=== PATIENT | female | born 1945 | race African-American/Black ===

== ENCOUNTER 2016-06-20 10:24 | Inpatient (IN) | payer MEDICARE, OTHER ==
[2016-06-11 13:51] LABS: HEMATOCRIT 34.6 % (36.0-48.0); HEMOGLOBIN 12.3 g/dL (12.0-16.0)
[2016-06-11 14:12] LABS: BUN (BLOOD UREA NITROGEN) 16 MG/DL (6-23); CALCIUM, SERUM 8.7 MG/DL (8.5-10.4); CHLORIDE, SERUM 107 MMOL/L (96-112); CO2 (CARBON DIOXIDE) 27 MMOL/L (24-34); CREATININE 1.09 MG/DL (0.55-1.02); GFR AFRICAN AMERICAN 60 ML/MIN (>=60); GFR NON AFRICAN AMERICAN 52 ML/MIN (>=60); GLUCOSE, SERUM 90 MG/DL (60-99); POTASSIUM, SERUM 3.4 MMOL/L (3.5-5.3); SODIUM, SERUM 145 MMOL/L (135-148)
--- NOTE | ~2016-06-20 | OP ---
Record Of Operation [facility] [address] [place]. [address] NAME: CHAR SAUER : 47 STATUS : ADM IN PAT#: [id number] AGE: 70 ADM/REG DATE : 06/20/16 MR#: [id number] REPORT SERV DATE: 06/20/16 DICTATED BY: VINCE DAUGHERTY DATE: 06/20/16 REPORT STATUS : Draft TRANSCRIBED BY: MODL DATE: 06/20/16 DATE OF PROCEDURE: 06/20/2016 SERVICE: Otolaryngology. ATTENDING PHYSICIAN: Vince Daugherty M.D. PREOPERATIVE DIAGNOSIS: Cervical spine disease. POSTOPERATIVE DIAGNOSE: Cervical spine disease. PROCEDURE: Anterior cervical approach to the anterior cervical spine. SURGEON: Vince Daugherty M.D. CAKE PRESS OPERATOR: Yudelka Browning.O. ANESTHESIA: General endotracheal anesthesia with a 6-0 nerve integrity monitoring tube. SPECIMENS: None. FINDINGS: We were able to adequately expose the plate for removal. COMPLICATIONS: None. ESTIMATED BLOOD LOSS: 5 mL. STATEMENT OF MEDICAL NECESSITY: This is a 70-year-old female with history of severe cervical spine disease, who underwent an ACDF. Unfortunately, she had a large thyroid goiter at the time and the surgery was very difficult. She since had problems with that and is requiring revision. In the interim, I have done a total thyroidectomy on her. 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 Dr. Winchester was planning a revision surgery. He asked me to come and do the approach. We selected the right-hand side because the left is her only working vocal cord. We did this to avoid complications of bilateral cord paralysis. STATEMENT OF OPERATION: The patient was brought to the operating room in supine position, transferred over to the operating table. All pressure points were padded and general endotracheal anesthesia was established with a 6-0 nerve integrity monitoring tube. The patient's neck was placed in extension with a shoulder roll. A surgical marking was made in a relaxed skin tension line. It was injected with 2 mL of 2% lidocaine with epinephrine. The patient was then prepped and draped in usual fashion. The nerve integrity monitor was found to be functioning appropriately. An incision was made down through the platysma. The skin edges were retracted with Canova retracting hooks. The midline raphe was identified and divided bluntly and sharply with Metzenbaum scissors. The strap muscles were retracted laterally. The space between the trachea and great vessels developed gently using [facility] Record Of Operation [facility] [address] [place]. [address] NAME: CHAR SAUER : 47 STATUS : ADM IN PAT#: [id number] AGE: 70 ADM/REG DATE : 06/20/16 MR#: [id number] REPORT SERV DATE: 06/20/16 DICTATED BY: VINCE DAUGHERTY DATE: 06/20/16 REPORT STATUS : Draft TRANSCRIBED BY: MODL DATE: 06/20/16 dissector and a Harmonic scalpel. Once we got down to that space, we identified the anterior surface of the plate. It was fully exposed. The scar tissue over the top of the plate was incised with the Bovie cautery and then removed with a Kittner elevator. Once the plate was completely exposed, Dr. Winchester took over. Please see his dictation for the remainder of the surgery. PS/MODL Vince Daugherty MD / [id number] CC: Tc Winchester, DO Iban Hickman M.D.
--- NOTE | ~2016-06-20 | OP ---
Record Of Operation [facility] [address] [place]. [address] NAME: CHAR SAUER : 47 STATUS : ADM IN PAT#: [id number] AGE: 70 ADM/REG DATE : 06/20/16 MR#: [id number] REPORT SERV DATE: 06/21/16 DICTATED BY: TC WINCHESTER DATE: 06/20/16 REPORT STATUS : Draft TRANSCRIBED BY: MODL DATE: 06/20/16 DATE OF PROCEDURE: 06/20/2016 PREOPERATIVE DIAGNOSES: 1. Recurrent disk disease and stenosis, C3 through T1 with previous C4 through C7 anterior cervical diskectomy and fusion with pullout of anterior cervical screws from the previously placed fusion. 2. Cervical myelopathy. 3. Cervical stenosis with spinal cord compression. POSTOPERATIVE DIAGNOSES: 1. Recurrent disk disease and stenosis, C3 through T1 with previous C4 through C7 anterior cervical diskectomy and fusion with pullout of anterior cervical screws from the previously placed fusion. 2. Cervical myelopathy. 3. Cervical stenosis with spinal cord compression. PROCEDURE: Two-stage procedure, first stage removal of C4 through C7 anterior cervical plate and screws; removal of previously placed C4-5, C5-6, and C6-7 PEEK interbody spacers; C4, C5, and C6 corpectomy (removal of the central one-third of the vertebral body at each of those three levels); placement of titanium mesh cage, C3 through C7; local morcellized autograft; allograft bone matrix; neuromonitoring; anterior cervical plate from [employer], C3 through C7; intraoperative O-arm CT scan with computer navigation; and operative microscope. SURGEONS: For stage I was Dr. Winchester and Dr. Machuca from ENT performed the exposure and he will dictate that separately. Stage II of the procedure was C2-C7 laminectomy and bilateral foraminotomies, C2-T1 posterolateral fusion bilaterally, C2-T1 posterior segmental spinal instrumentation using Medtronic pedicle screws and lateral mass screws, local morcellized autograft, allograft bone matrix, neuromonitoring, intraoperative O-arm CT scan with computer navigation. Surgeon for stage II just Dr. Winchester. The intraoperative O-arm CT scan with computer navigation should just be for stage II, not for stage I. ANESTHESIA: General estimated. ESTIMATED BLOOD LOSS: 350 mL. COMPLICATIONS: None. INDICATIONS: The patient is a pleasant 70-year-old, who had undergone a previous anterior cervical diskectomy and fusion. She had a very large and very immobile goiter, which hindered my approach and ability to do as good of a decompression as necessary and the patient continued to have progressive degenerative changes, and spinal cord and nerve root compression, failed conservative treatment, and after progressive neurologic decline elected to proceed with revision surgery. Record Of Operation [facility] [address] [place]. [address] NAME: CHAR SAUER : 47 STATUS : ADM IN PAT#: [id number] AGE: 70 ADM/REG DATE : 06/20/16 MR#: [id number] REPORT SERV DATE: 06/21/16 DICTATED BY: TC WINCHESTER DATE: 06/20/16 REPORT STATUS : Draft TRANSCRIBED BY: MARIO ALBERTO DATE: 06/20/16 PROCEDURE IN DETAIL: I identified the patient in the holding area. Consent was obtained. Went to the operating room. Underwent general anesthesia with endotracheal intubation. Prepped and draped in the usual sterile fashion. Operative safety pause was performed and then we proceeded with surgery. Dr. Machuca from ENT performed the approach to the anterior cervical spine and it is dictated separately. Previously placed instrumentation was identified. The screws were removed from C4 through C7 bilaterally. The plate was removed. Each of the previously placed interbody PEEK grafts were also removed. Anterior osteophytes were removed with a Kerrison. Repeat diskectomies were performed at C3-4, C4-5, C5-6, and C6-C7. Corpectomies were performed at C4, C5, and C6. A rongeur was used to remove the anterior third of the vertebral body. The posterior aspect of the vertebral bodies was taken down with a Kerrison. Foraminotomies were repeated from C3 through C7, decompressing the spinal cord centrally as well as the C4-C7 nerve roots bilaterally. A high-speed bur was used to decorticate the remaining endplate at C3 and C7. A rasp was used to final prepare. A caliper was used to measure the distance. A titanium mesh cage was cut to the appropriate length, packed with local morcellized autograft and allograft bone matrix and placed into the C3-C7 interspace. This was all done under visualization from operative microscope. An anterior cervical plate was then placed from C3 through C7. Screws were placed, final tightened. Locking mechanism engaged. Irrigation performed. Hemostasis achieved. Subplatysmal drain placed. Layered closure performed. Sterile dressings applied. The patient was turned the prone position, prepped and draped in usual sterile fashion. A midline longitudinal incision was made to start the stage II procedure. Taken down through the fascial layer. Paraspinous muscle subperiosteally elevated. Self- retaining retractors were placed. O-arm registration frame was placed on the spinous process. O-arm was brought in for intraoperative CT scan. Computer registration materials were verified. Under computer guidance, pedicle and lateral mass screws were placed bilaterally from C2 down to T1. A high-speed bur was used to create a trough in the lamina, C3-C7. Final cut through was made with a obdulia jessica. Kerrison released the ligamentum flavum, and lamina was removed en bloc from C3 to C7 and used for local morcellized autograft. Performed foraminotomies bilaterally, C3 through C7, decompressing the C4-C7 nerve roots. Rods were cut and contoured to appropriate shape and length, and placed over the screws from C2 to T1. Set screws were placed and final tightened. A high-speed decorticating jessica was used to decorticate the remaining bony surfaces, C2-T1 bilaterally. Irrigation performed. Hemostasis achieved. Local morcellized autograft and allograft bone matrix packed over the decorticated surfaces, C2-T1 bilaterally. Subfascial drain was placed. A gram of vancomycin powder was sprinkled over the surgical wound. Layered closure performed. Sterile dressings applied. The patient was awoken and extubated, taken to the recovery room in stable condition. OPERATIVE FINDINGS: Severe stenosis, C3-C7. No sustained neuromonitoring alerts. JCE/MODL Tc Winchester, DO Record Of Operation [facility] [address] [place]. [address] NAME: CHAR SAUER : 49 STATUS : ADM IN [facility]#: [id number] AGE: 70 ADM/REG DATE : 06/20/16 MR#: [id number] REPORT SERV DATE: 06/21/16 DICTATED BY: TC WINCHESTER DATE: 06/20/16 REPORT STATUS : Draft TRANSCRIBED BY: MARIO ALBERTO DATE: 06/20/16 / [id number] CC: Tc Winchester DO
--- NOTE | ~2016-06-20 | DS ---
Discharge Summary [facility] [address] [place]. [address] NAME: CHAR SAUER : 49 STATUS : DIS IN PAT#: [id number] AGE: 70 ADM/REG DATE : 06/20/16 MR#: [id number] REPORT SERV DATE: 07/04/16 DICTATED BY: TC WINCHESTER DATE: 07/03/16 REPORT STATUS : Draft TRANSCRIBED BY: MARIO ALBERTO DATE: 07/03/16 Data Collection from hospitalization DISCHARGE DIAGNOSES: 1. Recurrent disk disease and stenosis, C3 through T1 with previous C4 through C7 anterior cervical diskectomy and fusion with pull out of anterior cervical screws from the previously placed fusion. 2. Cervical myelopathy. 3. Cervical stenosis with spinal cord compression. 4. Hypertension. 5. Rheumatoid arthritis. 6. Fibromyalgia. 7. Hypercholesterolemia. 8. Hypothyroidism. 9. Migraines. 10.Gastric reflux. CONSULTATIONS: 1. Torres Machuca MD. 2. Ramón Escalante M.D. PROCEDURES PERFORMED: 1. Anterior cervical approach to the anterior cervical spine on 06/20/2016. 2. Two-stage procedure. First stage: Removal of C4 through C7 anterior cervical plate and screws; removal of previously placed C4-C5, C5-C6, and C6-C7 PEEK interbody spacers; C4, C5, and C6 corpectomy (removal of central one-third of the vertebral body at each of those three levels); placement of titanium mesh cage, C3 through C7; local morselized autograft; allograft bone matrix; neuromonitoring; anterior cervical plate from [employer], C3 through C7; intraoperative O-arm CT scan with computer navigation and operative microscope on 06/20/2016. PATHOLOGY: Vertebral bone and soft tissue, cervical spine - no specific microscopic abnormality. MEDICATIONS: Humira 40 mg subcutaneously every other week, aspirin 81 mg daily, Tenormin 50 mg every morning, Tums two tablets three times a day, vitamin D 1000 units daily, Nexium 40 mg every morning, Premarin 0.9 mg daily as instructed, Lunesta 3 mg at bedtime, Janine 180 mg daily, folic acid 3 mg daily, hydrochlorothiazide 25 mg daily, [place] 5/325 one to two tablets every four hours as needed, levothyroxine 88 mcg daily, Amitiza 8 mcg with breakfast and supper, Trexall 25 mg weekly, fish oil 1000 mg daily, Percocet 5/325 one to two tablets every four hours as needed, MiraLAX powder one packet daily, Micro-K 10 mEq three times a day, Pravachol 40 mg at bedtime, Maxalt 10 mg as needed, Zanaflex 2 mg three times a day, and Topamax 100 mg every morning. CONDITION AT DISCHARGE: Stable. DISPOSITION: The patient was discharged home to be followed by home health on a mechanical soft, gluten-free diet with activities as instructed. She would follow up with me on Discharge Summary [place] [id number] [facility] [place]. [address] NAME: CHAR SAUER : 47 STATUS : DIS IN PAT#: [id number] AGE: 70 ADM/REG DATE : 06/20/16 MR#: [id number] REPORT SERV DATE: 07/04/16 DICTATED BY: TC WICNHESTER DATE: 07/03/16 REPORT STATUS : Draft TRANSCRIBED BY: MARIO ALBERTO DATE: 07/03/16 07/05/2016. HOSPITAL COURSE: This is a 70-year-old female who had undergone a previous anterior cervical diskectomy and fusion at C4 through C7. Unfortunately, due to a large goiter, I was unable to obtain sufficient exposure to complete all of the decompression and stabilization that was needed. I was dissatisfied with the overall placement of the plate, but it was not in a position of danger, but I felt that she would heal better and I would be able to get a better decompression and fusion on the patient now that the goiter had been removed. We had discussed this in great detail consisting of both an anterior and posterior approach as she does have some additional cord compression at C2-C3 level above where the previous fusion was done. Treatment options were discussed and it was elected to proceed with surgical intervention. She was admitted to the hospital at this time for further evaluation and treatment. Upon admission, she was seen by Dr. Torres Machuca. He had performed the total thyroidectomy on the patient. 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 He had been asked to perform the approach for the cervical spine surgery. The patient was taken to the operating room where she underwent the above-mentioned procedures by myself and Dr. Torres Machuca. She tolerated this well, and there were no complications. On postop day #1, she was seen by Dr. Ramón Escalante. She was awake and alert. Blood pressure was 167/78. Her heart rate was 72. She was stable postoperatively. She was evaluated by Physical Therapy. On 06/22/2016, she continued to do well. She was tolerating her diet. Her drains were left in place. Over the next couple of days, she continued to progress. Her drain was removed. Discharge planning was performed. She was able to get up and go to the bathroom with assistance. Blood pressure was controlled. On 06/25/2016, she had good pain control. She wanted to go home. Discharge instructions were given. Due to her improved and stable condition, she was discharged home to be followed by home health care with the above-stated instructions. Information collected by: Marjan Etienne I submit the above information as my discharge summary. TG/MODL Tc Winchester DO / [id number] CC: DO Iban Browning M.D. Peter Sabatini, MD
--- NOTE | ~2016-06-20 | PREOPHP ---
PreOp History and Physical [facility] [address] [place]. [address] NAME: CHAR SAUER : 47 STATUS : ADM IN PAT#: [id number] AGE: 70 ADM/REG DATE : 06/20/16 MR#: [id number] REPORT SERV DATE: 06/20/16 DICTATED BY: TC WINCHESTER DATE: 06/20/16 REPORT STATUS : Draft TRANSCRIBED BY: MARIO ALBERTO DATE: 06/20/16 CHIEF COMPLAINT: Neck pain and signs of myelopathy. HISTORY OF PRESENT ILLNESS: The patient is a 70-year-old, who had undergone a previous anterior cervical diskectomy and fusion by me at C4 through C7. Unfortunately due to a large goiter, I was unable to obtain sufficient exposure to complete all the decompression and stabilization that was needed, and I was dissatisfied with the overall placement of the plate, it was not in a position of danger, but I felt that she would heal better and I would be able to get a better decompression and fusion on the patient now that the goiter has been removed. We discussed this in great detail consisting of both an anterior and posterior approach, as she does have some additional cord compression at the C2-C3 level above where the previous fusion was done and after discussion of risks and benefits, she elected to proceed with the combined surgery to try to give herself the best chance for full decompression with fusion. REVIEW OF SYSTEMS: She denies chest pain, shortness of breath, and bowel or bladder changes. ALLERGIES: INCLUDE MORPHINE AND SULFA. HOME MEDICATIONS: Janine, alprazolam, aspirin, Amitiza, amlodipine, atenolol, fish oil, folic acid, Lasix, hydrochlorothiazide, hydrocodone, indomethacin, Lunesta, Maxalt, methotrexate, Nexium, polyethylene glycol, potassium, Pravachol, pravastatin, Premarin, Restasis, Symbicort, Synthroid, tizanidine, Topamax, Valtrex, vitamin D3 with ALA. FAMILY HISTORY: Noncontributory. PAST MEDICAL HISTORY: Include rheumatoid arthritis, fibromyalgia, hypertension, high cholesterol, hypothyroidism, migraines, and gastric reflux. PHYSICAL EXAMINATION: VITAL SIGNS: Height 5 feet 7 inches, weight 150, BMI 23.5. GENERAL: The patient is healthy appearing, no acute distress. PSYCHIATRIC: Alert and oriented x3. Normal mood and affect. Gait is somewhat unsteady. VASCULAR: No extremity swelling. SPINE: Decreased cervical range of motion, well-healed previous incisions from her neck surgery for the goiter as well as from her cervical spine surgery. HEART: Regular rate and rhythm. LUNGS: Clear to auscultation. ABDOMEN: Soft, nontender, nondistended with good bowel sounds. BREASTS AND RECTAL: Both deferred. NEUROLOGIC: Strength in the upper extremities remains intact. No focal deficits. IMAGING: I have reviewed the CT scan as well as plain x-rays that do show a less than ideal plate placement of being anterior continued C4-5 ossification causing spinal cord compression as well as new C2-C3 compression causing spinal cord compression. PreOp History and Physical [address] [address] NAME: CHAR SAUER : 47 STATUS : ADM IN [facility]#: [id number] AGE: 70 ADM/REG DATE : 06/20/16 MR#: [id number] REPORT SERV DATE: 06/20/16 DICTATED BY: TC WINCHESTER DATE: 06/20/16 REPORT STATUS : Draft TRANSCRIBED BY: MARIO ALBERTO DATE: 06/20/16 ASSESSMENT: Continued cervical spine stenosis with progressive signs of myelopathy, failed conservative treatment. PLAN: The patient presents today for surgical intervention. Consent was obtained. All questions answered. She is ready to proceed with the combined anterior and posterior approach. Dr. Machuca from ENT will provide the exposure anteriorly as he was recently treating her for the goiter and will help navigate that scar tissue. SAUMYA/MARIO ALBERTO Tc Winchester DO / [id number] CC: DO Iban Browning M.D.
[~2016-06-20 10:24] MED LIST: ALLEGRA180 PO; AMITIZA8 MCG PO; ASAB PO; ATEN50 PO; FISH-EPA1000 MG PO; FOLIC PO; HUMIRA PEN SC; HYDROCHLOROT25 MG PO; INDO50 PO; L40 PO; LEVOTHYROXIN88 MCG PO; LORTAB10 PO; LUNESTA3 MG PO; MAXALT10 MG PO; MICRO-K10 MEQ PO; MIRALAX POWDER1 PKT PO; MIRALAXPKT PO; NEXIUM40 PO; NORCO1 TA1 PO; PCET PO; POTASSIUM CITRATE; PRAVACHOL40 MG PO; PREM9 PO; TOPAMAX100 PO; TOPXL100 PO; TREXALL10 MG PO; TUMSROLL PO; VITAMIN D1000 UNI1 PO; VITAMIN D31000 UNIT PO; ZANAFLEX2 MG PO; [UNRECOGNIZED DRUG - OTHER] PO
[2016-06-21 05:33] LABS: POTASSIUM, SERUM 3.5 MMOL/L (3.5-5.3)
[2016-06-25 04:52] LABS: BASOPHILS 0.1 %; BASOPHILS ABSOLUTE 0.01 10/3/uL (0.0-0.16); EOSINOPHILS 2.9 %; EOSINOPHILS ABSOLUTE 0.24 10/3/uL (0.0-0.53); IMMATURE GRANULOCYTES 0.5 %; IMMATURE GRANULOCYTES ABSOLUTE 0.04 10/3/uL (0.0-0.11); LYMPHOCYTES 40.5 %; LYMPHOCYTES ABSOLUTE 3.37 10/3/uL (0.67-4.30); MEAN CORPUS HGB CONC 34.9 g/dL (32.0-36.0); MEAN PLATELET VOLUME 10.9 fL (9.2-13.0); MONOCYTES 11.4 %; MONOCYTES ABSOLUTE 0.95 10/3/uL (0.21-1.20); NEUTROPHILS 44.6 %; NEUTROPHILS ABSOLUTE 3.71 10/3/uL (2.02-8.40); PLATELET COUNT 221 10/3/uL (150-400); RBC DISTRIBUTION WIDTH 14.3 % (12.0-16.0)
[2016-06-25 04:53] LABS: HEMATOCRIT 27.8 % (36.0-48.0); HEMOGLOBIN 9.7 g/dL (12.0-16.0); MANUAL DIFF NO %; MEAN CORPUSCULAR VOLUME 80.3 fL (80-100); RED CELL COUNT 3.46 10/6/uL (4.0-5.6); WHITE BLOOD CELLS 8.3 10/3/uL (4.5-10.5)
[2016-06-25 05:04] LABS: CALCIUM, SERUM 8.5 MG/DL (8.5-10.4); CREATININE 0.83 MG/DL (0.55-1.02); GFR AFRICAN AMERICAN 84 ML/MIN (>=60); GFR NON AFRICAN AMERICAN 72 ML/MIN (>=60); GLUCOSE, SERUM 98 MG/DL (60-99); POTASSIUM, SERUM 3.3 MMOL/L (3.5-5.3); SODIUM, SERUM 138 MMOL/L (135-148)
[2016-06-25 05:06] LABS: BUN (BLOOD UREA NITROGEN) 8 MG/DL (6-23); CHLORIDE, SERUM 101 MMOL/L (96-112); CO2 (CARBON DIOXIDE) 30 MMOL/L (24-34)
[2016-06-25] MEDS ORDERED: PCET PO (11:54)
== END 2016-06-25 14:25 | disposition home health service (06) | DRG 454 ==
LOC: SDC/OF 10:24 → PACU 19:27 → MIC 19:33 → 3SO 06-21 15:48
PROVIDERS: Orthopaedic Surgery
PROC: 0RG20A0 Fusion of 2 or more Cervical Vertebral Joints with Interbody Fusion Device, Anterior Approach, Anterior Column, Open Approach (ICD-10-PCS; principal; 2016-06-20 12:15)
PROC: 0RG2071 Fusion of 2 or more Cervical Vertebral Joints with Autologous Tissue Substitute, Posterior Approach, Posterior Column, Open Approach (ICD-10-PCS; 2016-06-20 12:15)
PROC: 0RG4071 Fusion of Cervicothoracic Vertebral Joint with Autologous Tissue Substitute, Posterior Approach, Posterior Column, Open Approach (ICD-10-PCS; 2016-06-20 12:15)
PROC: 4A11X4G Monitoring of Peripheral Nervous Electrical Activity, Intraoperative, External Approach (ICD-10-PCS; 2016-06-20 12:15)
DX: M50.021 Cervical disc disorder at C4-C5 level with myelopathy (principal); D62 Acute posthemorrhagic anemia; I10 Essential (primary) hypertension; E03.9 Hypothyroidism, unspecified; E78.5 Hyperlipidemia, unspecified; K21.9 Gastro-esophageal reflux disease without esophagitis
CPT/HCPCS: 72040; 80048; 80051; 82962; 85014; 85018; 85025; 87641; 88300; 88304; 88311; 93005; 97116-GP; 97161-GP; A9270-GY; C1713; C1776; J0690; J1644; J2250; J2370; J2405; J3010; J3370; J8610